=== PATIENT | male | born 1940 | race Caucasian/White ===

== ENCOUNTER 2017-04-02 18:01 | Observation (INO) | payer MEDICARE, MEDICAID ==
[~2017-04-02] VITALS: Ht 170.2 cm; Wt 75.0 kg
[2017-04-02] MEDS ORDERED: ASPIRIN 81 MG TAB PO STA (18:13)
--- NOTE | 2017-04-02 18:28 | ERD ---
ER Documentation Chief Complaint Chief Complaint PT BIB AMBULANCE FROM [facility] WITH C/O CHEST PAIN, NO SOB HPI 68-year-old male presents for substernal pressure-like chest pain that began a few hours ago while he was at his snf. Is no shortness of breath, nausea or vomiting. He was at rest when the pain occurred. 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 ROS All systems reviewed and are negative except as per history of present illness. Medications Home Meds Reported Medications Aspirin Ec (Aspir 81) 81 Mg Tablet.dr, 81 MG PO DAILY, #30 TAB 04/02/17 Tamsulosin Hcl* (Tamsulosin Hcl*) 0.4 Mg Cap.er.24h, 0.4 MG PO HS, CAP 04/02/17 Ascorbic Acid* (Vitamin C*) 500 Mg Capsule.sa, 500 MG PO BID, CAP 04/02/17 Multivitamins* (Theragran*) 1 Tab Tab, 1 TAB PO DAILY, TAB 04/02/17 Allergies Allergies: Coded Allergies: latex (Unverified Allergy, Unknown, ITCHING, SWELING, 04/02/17) PMhx/Soc History of Surgery: Yes (STENTS) Anesthesia Reaction: No Hx Neurological Disorder: No Hx Respiratory Disorders: No Hx Cardiac Disorders: Yes (HTN, HIGH CHOLESTEROL) Hx Psychiatric Problems: No Hx Miscellaneous Medical Probl: Yes Hx Alcohol Use: No Hx Substance Use: No Hx Tobacco Use: No Smoking Status: Never smoker Physical Exam Vitals Vital Signs Date Time Temp Pulse Resp B/P Pulse Ox O2 Delivery O2 Flow Rate FiO2 04/02/17 20:28 98.1 64 16 108/46 99 Room Air 04/02/17 18:30 59 20 118/59 99 Room Air 04/02/17 18:12 98.1 58 18 123/54 100 Physical Exam Const: [] No distress Head: Atraumatic Eyes: Normal Conjunctiva ENT: Normal External Ears, Nose and Mouth. Neck: Full range of motion..~ No meningismus. Resp: Clear to auscultation bilaterally Cardio: Regular rate and rhythm, no murmurs Abd: Soft, non tender, non distended. Normal bowel sounds Skin: No petechiae or rashes Back: No midline or flank tenderness Ext: No cyanosis, or edema Neur: Awake and alert Psych: Normal Mood and Affect Result Diagram: 04/02/17184004/02/17 184 Results 24 hrs Laboratory Tests Test 04/02/17 18:41 White Blood Count 6.910^3/ul Red Blood Count 4.0410^6/ul Hemoglobin 11.4g/dl Hematocrit 34.8% Mean Corpuscular Volume 86.1fl Mean Corpuscular Hemoglobin 28.2pg Mean Corpuscular Hemoglobin Concent 32.8g/dl Red Cell Distribution Width 13.8% Platelet Count 69520^3/UL Mean Platelet Volume 9.6fl Neutrophils % 59.3% Lymphocytes % 28.6% Monocytes % 8.6% Eosinophils % 2.8% Basophils % 0.3% Nucleated Red Blood Cells % 0.0/100WBC Neutrophils # 4.110^3/ul Lymphocytes # 2.010^3/ul Monocytes # 0.610^3/ul Eosinophils # 0.210^3/ul Basophils # 0.010^3/ul Nucleated Red Blood Cells # 0.010^3/ul Sodium Level 141mmol/L Potassium Level 4.4mmol/L Chloride Level 105mmol/L Carbon Dioxide Level 29mmol/L Anion Gap 11 Blood Urea Nitrogen 28mg/dl Creatinine 1.36mg/dl Glucose Level 114mg/dl Calcium Level 8.9mg/dl Troponin I < 0.012ng/ml B-Type Natriuretic Peptide 517PG/ML Current Medications Medications (Trade) Dose Ordered Sig/Joi Route PRN Reason Start Time Stop Time Status Last Admin Dose Admin Aspirin (Aspirin) 162 mg ONCE STAT PO 04/02/17 18:13 04/02/17 18:14 DC 04/02/17 19:08 Ondansetron HCl (Zofran Inj) 4 mg ER BRIDGE PRN IV NAUSEA AND/OR VOMITING 04/02/17 21:00 04/03/17 20:59 Acetaminophen (Tylenol Tab) 650 mg ER BRIDGE PRN PO MILD PAIN/FEVER 04/02/17 21:00 04/03/17 20:59 Procedures/MDM Chest pain reduced with nitroglycerin in she was significant coronary disease and recent stenting. Initial troponin is negative however the pain is acute. Does have mild renal insufficiency as well. I spoke with the patient's daughter as well as the patient. 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 He was given aspirin to create complete 324 mg. No additional nitro has been given yet. I am going to admit him to telemetry under Dr. fernandez for further monitoring and serial troponin measurements. EKG interpretation: Sinus bradycardia, rate of 57, mild sinus arrhythmia, normal axis, no ST or T-wave changes concerning for acute ischemia except for mild T-wave flattening in lateral leads. Normal intervals. engine monitor interpretation: Mild sinus bradycardia without other arrhythmia Chest x-ray interpretation: I see no acute process, no widened mediastinum, pneumothorax, no infiltrates, no palmar edema, no fractures Departure Diagnosis: Primary Impression: Chest pain Additional Impressions: Acute electrocardiogram changes Renal insufficiency Condition: Serious RADHA CISNEROS DO Apr 02, 2017 18:28
[2017-04-02 18:51] LABS: BASOPHILS % 0.3 % (0.0-2.0); EOSINOPHILS # 0.2 10^3/ul (0.0-0.5); EOSINOPHILS % 2.8 % (0.0-7.0); HEMATOCRIT 34.8 % (42.0-52.0); HEMOGLOBIN 11.4 g/dl (14.0-18.0); LYMPHOCYTES % 28.6 % (15.0-51.0); MEAN CORPUSCULAR HEMOGLOBIN 28.2 pg (29.0-33.0); MEAN CORPUSCULAR HGB CONC 32.8 g/dl (32.0-37.0); MEAN CORPUSCULAR VOLUME 86.1 fl (82.0-101.0); MEAN PLATELET VOLUME 9.6 fl (7.4-10.4); MONOCYTE # 0.6 10^3/ul (0.3-0.9); MONOCYTES % 8.6 % (0.0-11.0); NEUTROPHIL # 4.1 10^3/ul (1.6-7.5); NEUTROPHILS % 59.3 % (39.0-77.0); PLATELET COUNT 149 10^3/UL (140-415); RED BLOOD COUNT 4.04 10^6/ul (4.70-6.10); RED CELL DISTRIBUTION WIDTH 13.8 % (11.5-14.5); WHITE BLOOD COUNT 6.9 10^3/ul (4.8-10.8)
--- NOTE | 2017-04-02 19:00 | RADRPT ---
PROCEDURE: XR Chest. CLINICAL INDICATION: Chest pain TECHNIQUE: Single frontal chest x-ray. COMPARISON: None. FINDINGS: The lungs are clear. No focal opacification is seen. The cardiomediastinal silhouette is unremarka ble. Aortic atherosclerotic vascular calcifications. The aorta is tortuous and ectatic. The osseous structures are unremarkable. IMPRESSION: 1. There is no acute cardiopulmonary process. 2. Atherosclerotic vascular calcifications. RPTAT: PP .Doug Ac MD, MD Date Time Electronically viewed and signed by .Doug Ac MD, on 04/02/2017 18:59 .B/
[2017-04-02 19:16] LABS: ANION GAP 11 (8-16); BLOOD UREA NITROGEN 28 mg/dl (7-20); CALCIUM 8.9 mg/dl (8.4-10.2); CARBON DIOXIDE 29 mmol/L (21-31); CHLORIDE 105 mmol/L (97-110); CREATININE 1.36 mg/dl (0.61-1.24); GLUCOSE 114 mg/dl (70-220); POTASSIUM 4.4 mmol/L (3.5-5.1); SODIUM 141 mmol/L (135-144)
[2017-04-02 19:27] LABS: B-TYPE NATRIURETIC PEPTIDE 517 PG/ML (0-450)
[2017-04-02 19:32] LABS: TROPONIN-I < 0.012 ng/ml (0.00-0.12)
[2017-04-02 20:28] VITALS: TEMP 98.1
[2017-04-02] MEDS ORDERED: MULTI PO (20:49)
[2017-04-02] MEDS ORDERED: ASCO500C7 PO (20:49)
[2017-04-02] MEDS ORDERED: TAMS0.4C2 PO (20:49)
[2017-04-02] MEDS ORDERED: ASPI-535 PO (20:50)
[2017-04-02] MEDS ORDERED: ACETAMINOPHEN 325 MG TAB PO PRN (21:00)
[2017-04-02] MEDS ORDERED: ONDANSETRON 4 MG INJ IV PRN (21:00)
[2017-04-02] MEDS ORDERED: SOD CHLORIDE 0.9% 500 ML IV ONE (21:30)
[2017-04-02 22:22] VITALS: PULSE 50
[2017-04-02 22:30] VITALS: Ht 170.2 cm; Wt 75.0 kg
[2017-04-02 23:11] VITALS: BP 158/68; RESP 20
[2017-04-03] VITALS (8 sets, daily range): BP systolic 114–163; BP diastolic 56–71; PULSE 66–73; RESP 16–21
[2017-04-03] MEDS ORDERED: morphine 2 MG INJ IV PRN
[2017-04-03 01:22] LABS: CREATINE KINASE 29 IU/L (23-200)
[2017-04-03] MEDS ORDERED: ZOLPIDEM 5 MG TAB PO PRN (01:30)
[2017-04-03 01:38] LABS: CK-MB 1.16 ng/ml (0.0-2.4); TROPONIN-I < 0.012 ng/ml (0.00-0.12)
[2017-04-03] MEDS ORDERED: SOD CHLORIDE 0.9% 500 ML IV ONE (05:30)
[2017-04-03] MEDS ORDERED: HALOPERIDOL 5 MG INJ IM ONE (07:00)
[2017-04-03] MEDS ORDERED: LORAZEPAM 2 MG INJ IM ONE (07:00)
[2017-04-03 08:40] LABS: BASOPHILS % 0.5 % (0.0-2.0); EOSINOPHILS # 0.1 10^3/ul (0.0-0.5); EOSINOPHILS % 1.8 % (0.0-7.0); HEMATOCRIT 35.5 % (42.0-52.0); HEMOGLOBIN 11.7 g/dl (14.0-18.0); LYMPHOCYTES # 1.9 10^3/ul (0.8-2.9); LYMPHOCYTES % 25.1 % (15.0-51.0); MEAN CORPUSCULAR HEMOGLOBIN 28.2 pg (29.0-33.0); MEAN CORPUSCULAR VOLUME 85.5 fl (82.0-101.0); MEAN PLATELET VOLUME 10.9 fl (7.4-10.4); MONOCYTE # 0.6 10^3/ul (0.3-0.9); MONOCYTES % 7.4 % (0.0-11.0); NEUTROPHILS % 64.7 % (39.0-77.0); PLATELET COUNT 187 10^3/UL (140-415); RED BLOOD COUNT 4.15 10^6/ul (4.70-6.10); WHITE BLOOD COUNT 7.7 10^3/ul (4.8-10.8)
[2017-04-03] MEDS ORDERED: CLOPIDOGREL 75 MG TAB PO SCH (09:00)
[2017-04-03] MEDS ORDERED: HEPARIN 5,000 UNIT/0.5 ML VIAL SC SCH (09:00)
[2017-04-03] MEDS ORDERED: ASPIRIN (EC) 81 MG TAB PO SCH (09:00)
[2017-04-03] MEDS ORDERED: MULTIVITAMINS THERAPEUTIC TAB PO SCH (09:00)
[2017-04-03 10:50] LABS: CREATINE KINASE 37 IU/L (23-200)
[2017-04-03 10:52] LABS: ALBUMIN 4.3 g/dl (3.3-4.9); ALBUMIN/GLOBULIN RATIO 1.13; BILIRUBIN,INDIRECT 0.3 mg/dl (0-1.1); BILIRUBIN,TOTAL 0.3 mg/dl (0.2-1.3); CALCIUM 9.1 mg/dl (8.4-10.2); CREATININE 1.13 mg/dl (0.61-1.24); POTASSIUM 4.5 mmol/L (3.5-5.1); TOTAL PROTEIN 8.1 g/dl (6.1-8.1)
[2017-04-03 11:07] LABS: CK-MB 1.14 ng/ml (0.0-2.4); TROPONIN-I < 0.012 ng/ml (0.00-0.12)
[2017-04-03 11:42] LABS: THYROID STIMULATING HORMONE 2.06 MIU/L (0.465-4.680)
--- NOTE | 2017-04-03 13:06 | PDOCDIS ---
Discharge Instructions CONDITION Patient Condition: Good HOME CARE INSTRUCTIONS: Diet Instructions: Modified Fat ACTIVITY: Activity Restrictions: No Restrictions FOLLOW UP/APPOINTMENTS Follow-up Plan F/U WITH YOUR PCP AND VAT CLEANER IN 1-2 WEEKS CARLOS OHLLIDAY Apr 03, 2017 13:06
--- NOTE | 2017-04-03 13:07 | RADRPT ---
PROCEDURE: CT Brain without contrast. CLINICAL INDICATION: Headaches. Neurologic deficit TECHNIQUE: A CT of the brain was performed on multidetector high-resolution CT scanner utilizing a xial sections from the skull base through the vertex without contrast. One or more of the following dose reduction techniques were used: Automated exposure control, Adjustment of the mA and/or kV acc ording to patient size, and/or use of iterative reconstruction technique. DICOM images are available . DOSE: CTDI = 45 mGy and the DLP = 720 mGy-cm. COMPARISON: None available FINDINGS: No acute intracranial hemorrhage, significant mass effect or midline shift. Patchy hypoattenuation o f the cerebral white matter is compatible with chronic microvascular ischemic changes. Vascular calc ifications. Prominence of the cortical sulci and ventricles are related to moderate central greater than peripheral cerebral volume loss. No significant opacification of the visualized paranasal sinu ses or mastoids. IMPRESSION: No acute intracranial hemorrhage or mass effect. Mild to moderate chronic microvascular disease and intracranial atherosclerosis. RPTAT: AA .Bear Hernández MD, MD Date Time Electronically viewed and signed by .Bear Hernández MD, MD on 04/03/2017 13:07 .T/
--- NOTE | 2017-04-03 16:40 | DS ---
Date/Time of Note Date/Time of Note DATE: 04/03/17 TIME: 16:38 Discharge Summary Admission/Discharge Info Admit Date/Time Apr 02, 2017 at 20:54 Discharge Date/Time April 03, 2017 Discharge Diagnosis 1. Chest pain in a patient with a history of coronary disease status post recent stent placement ACS ruled out His pain is resolved Continue cardiac meds and follow-up with his medical professionals as an outpatient 2. BPH Continue home med Patient Condition: Good Hospital Course Patient is a 68-year-old male with history of coronary disease status post recent stent placement at [facility]. Patient states that the stent was placed proximal 9 days ago, he states he is compliant with his medications. Patient developed chest pain 2 days ago, ACS was ruled out during this admission. On day of discharge patient denied any further chest pain, his vitals labs physical exam are stable. Patient states that he is planning on following up with his medical professionals at [facility]. Home Meds Reported Medications Aspirin Ec (Aspir 81) 81 Mg Tablet.dr, 81 MG PO DAILY, #30 TAB 04/02/17 Tamsulosin Hcl* (Tamsulosin Hcl*) 0.4 Mg Cap.er.24h, 0.4 MG PO HS, CAP 04/02/17 Ascorbic Acid* (Vitamin C*) 500 Mg Capsule.sa, 500 MG PO BID, CAP 04/02/17 Multivitamins* (Theragran*) 1 Tab Tab, 1 TAB PO DAILY, TAB 04/02/17 Follow-up Plan F/U WITH YOUR PCP AND GINNING OPERATOR IN 1-2 WEEKS Primary Care Provider Macho Giron MD Time spent on discharge: > 30 minutes CARLOS HOLLIDAY Apr 03, 2017 16:40
--- NOTE | 2017-04-03 18:03 | RADRPT ---
Echocardiogram Report Patient Name: PAUL DURON Gender: Male Date: 1940 Study Date: 03-Apr-2017 Machine Rough Rounder: Lorrie Mohan [facility] Location: [address] Ref. Physician: MIGUEL ÁNGEL LOREDO Quality: Good Procedures: Transthoracic echocardiogram with complete 2D, M-Mode, and doppler examination. Indications: Chest Pain. 2D/M Mode Doppler Measurement Value Normal Ranges Measurement Value Normal Ranges LVIDd 2D 4.5 3.5 - 5.6 cm AV Peak Robin 1.3 m/sec LVIDs 2D 3.6 2.1 - 4.1 cm AV Peak PG 6.4 mmHg LVPWd 2D 0.9 0.6 - 1.1 cm MV E Peak Robin 0.7 m/sec IVSd 2D 1.0 0.6 - 1.1 cm MV A Peak Robin 0.8 m/sec AoR Diam 2D 3.2 2.0 - 3.7 cm MV E/A 0.9 EDV 2D 91.6 cm3 MV Decel Time 154 msec ESV 2D 47.3 cm3 MV Decel [place] 5 LA Dimen 2D 3.6 2.3 - 4.0 cm MV E/A 0.9 TR Peak Robin 2.7 m/sec TR Peak PG 28.6 mmHg RVSP 32.0 mmHg Findings Left Ventricle: Lower limits of normal systolic function. Normal left ventricular cavity size. Normal left ventricular wall thickness. Ejection fraction is visually estimated at 5055 %. Tissue Doppler/Mitral Doppler indices are consistent with impaired relaxation (Stage I diastolic dysfunction). Right Ventricle: Normal right ventricular size. Normal right ventricular systolic function. Left Atrium: The left atrium is normal in size. Right Atrium: The right atrium is normal in size. Mitral Valve: Normal appearance and function of the mitral valve with trace physiologic regurgitation. Aortic Valve: No significant aortic stenosis or insufficiency. Aortic cusps appear mildly calcified. Tricuspid Valve: Normal appearance of the tricuspid valve. Estimated peak PA systolic pressure 32 mmHg. There is mild tricuspid regurgitation. Pulmonic Valve: Pulmonic valve not well visualized. Pericardium: Normal pericardium with no significant pericardial effusion. Aorta: Normal aortic root. IVC: Normal size and normal respiratory collapse consistent with normal right atrial pressure. Conclusions 1.Lower limits of normal systolic function. Normal left ventricular cavity size. Normal left ventricular wall thickness. Ejection fraction is visually estimated at 50-55 %. Tissue Doppler/Mitral Doppler indices are consistent with impaired relaxation (Stage I diastolic dysfunction). 2.Normal appearance and function of the mitral valve with trace physiologic regurgitation. 3.Normal appearance of the tricuspid valve. Estimated peak PA systolic pressure 32 mmHg. There is mild tricuspid regurgitation. Electronically Signed By: Crow Chester 03-Apr-2017 18:02:10 -0800 Patient Name: PAUL DURON Study Date: 03-Apr-2017 [id number]
[2017-04-03] MEDS ORDERED: TAMSULOSIN (SR) 0.4 MG CAP PO SCH (21:00)
[2017-04-03] MEDS ORDERED: ATORVASTATIN 20 MG TAB PO SCH (21:00)
--- NOTE | 2017-04-03 23:50 | HP ---
Date/Time of Note Date/Time of Note DATE: 04/03/17 TIME: 23:50 Assessment/Plan VTE Prophylaxis VTE Prophylaxis Intervention: heparin Lines/Catheters IV Catheter Type (from Nrsg): Saline Lock Assessment/Plan Assessment/Plan ASSESSMENT 76 yo male with possible recent PCI with cardiac stent here with chest pain PLAN telemonitoring oxygen, aspirin, BB, statin, with PRN nitro and morphine trend trops 2D-echo and cardiology recs HPI/ROS Admit Date/Time Admit Date/Time Apr 02, 2017 at 20:54 Hx of Present Illness 68-year-old male presents for substernal pressure-like chest pain that began a few hours ago while he was at his intermediate. [facility] NTG was helpful at SNF. No N/ V,diaphoresis, SOB. He reported recent cardiac cath with stent at [facility]. Note that no plavix included in outpt med. In ER, vitals stable. first trop neg and EKG w/o ST-T wave abnormalities. Cr is 1.26. PMH/Family/Social Social History Smoking Status: Never smoker Exam/Review of Systems Vital Signs Vitals Vital Signs Date Time Temp Pulse Resp B/P Pulse Ox O2 Delivery O2 Flow Rate FiO2 04/03/17 15:26 98.0 81 16 152/66 98 04/02/17 20:28 Room Air Intake and Output 04/02/17 04/02/17 04/03/17 15:00 23:00 07:00 Intake Total 600 ml Output Total 3 ml Balance 597 ml Exam Constitutional: other (agitated) Head: atraumatic, normocephalic Respiratory: clear to auscultation, normal air movement Cardiovascular: regular rate and rhythm Gastrointestinal: soft Extremities: normal pulses Labs Result Diagram: 04/03/17 0750 04/03/17 0944 MIGUEL ÁNGEL LOREDO MD Apr 03, 2017 23:50
== END 2017-04-03 17:00 ==
LOC: E/R 18:01 → TEL 20:54 → INTOOBSV 20:54
PROVIDERS: ADMIT Internal Medicine; ATTEND Internal Medicine
DX: R07.9 Chest pain, unspecified (principal); I10 Essential (primary) hypertension; E78.00 Pure hypercholesterolemia, unspecified; I25.10 Atherosclerotic heart disease of native coronary artery without angina pectoris; Z95.5 Presence of coronary angioplasty implant and graft; R51 Headache; Z79.82 Long term (current) use of aspirin; Z91.040 Latex allergy status
CPT/HCPCS: 36415; 70450; 71010; 80048; 80053; 80061; 82550; 82553; 83036; 83880; 84443; 84484; 85025; 93005; 93306; 99285; G0378; J1644; J7040; 99217